=== PATIENT | female | born 1950 | race Two or more races ===

== ENCOUNTER 2020-08-19 18:10 | Emergency (ER) | payer OTHER ==
[~2020-08-19] VITALS: Ht 162.6 cm; Wt 90.7 kg
[2020-08-19] MEDS ORDERED: TYLENOL #3 PO (18:30)
[2020-08-19] MEDS ORDERED: LISI10TA5 PO (18:30)
[2020-08-19] MEDS ORDERED: GABA-532 PO (18:30)
[2020-08-19] MEDS ORDERED: GLIM2TAB31 PO (18:30)
[2020-08-19] MEDS ORDERED: METF-440 PO (18:30)
[2020-08-19] MEDS ORDERED: ASPI81TA31 PO (18:30)
[2020-08-19] MEDS ORDERED: ATOR20TA PO (18:30)
[2020-08-19] MEDS ORDERED: MORPHINE SULFATE 2 MG/1 ML DISP.SYRIN IM ONE (19:15)
[2020-08-19] MEDS ORDERED: KETOROLAC TROMETHAMINE 30 MG INJ IM ONE (19:15)
[2020-08-19] MEDS ORDERED: KETOROLAC TROMETHAMINE 30 MG INJ ONE (19:18)
[2020-08-19] MEDS ORDERED: MORPHINE SULFATE 2 MG/1 ML DISP.SYRIN ONE (19:19)
--- NOTE | 2020-08-19 19:54 | NUR ---
Report given to Reji GUILLERMO. Pt is NAD VSS RA. with R ac G20 intact saline lock. Pending lab results Pending CT
[2020-08-19 19:59] LABS: BASOPHILS % (AUTO) 0.5 % (0.0-2.0); EOSINOPHILS # (AUTO) 0.1 K/uL (0.0-0.7); EOSINOPHILS % (AUTO) 1.5 % (0.0-7.0); HEMATOCRIT 38.1 % (31.2-41.9); HEMOGLOBIN 12.6 g/dL (10.9-14.3); LYMPHOCYTES # (AUTO) 1.8 K/uL (20.0-40.0); LYMPHOCYTES % (AUTO) 42.1 % (20.5-51.5); MEAN CORPUSCULAR HGB CONC 33 g/dL (32.3-35.6); MEAN CORPUSCULAR VOLUME 87.6 fL (75.5-95.3); MONOCYTES # (AUTO) 0.3 K/uL (2.0-10.0); MONOCYTES % (AUTO) 7.6 % (0.0-11.0); NEUTROPHILS % (AUTO) 48.3 % (38.5-71.5); PLATELET COUNT (AUTO) 215 K/uL (179-408); RED BLOOD CELL COUNT(AUTO) 4.35 MIL/uL (3.63-4.92); WHITE BLOOD COUNT (AUTO) 4.2 K/uL (3.8-11.8)
--- NOTE | 2020-08-19 20:05 | NUR ---
RECEIVED SBAR REPORT FROM RADHA GUILLERMO. PT HAD ALL MEDS ADMINISTERED, XRAYS PERFORMED, CT SCAN PENDING.
[2020-08-19 20:20] LABS: CREATININE 0.7 mg/dL (0.6-1.3); POTASSIUM 3.9 mmol/L (3.5-5.1)
[2020-08-19 20:32] LABS: BILIRUBIN,TOTAL 0.7 mg/dL (0.2-1.0); TOTAL PROTEIN, SERUM 7.4 g/dL (6.4-8.2)
--- NOTE | 2020-08-19 22:48 | NUR ---
MSE COMPLETED, PT D/C'D HOME, ACI GIVEN TO DAUGHTER. PT AMBULATED W.O DIFF/TOOK ALL BELONGINGS. IV D/C'D INTACT., COPY OD TESTS RESULTS AND XRAY-CT RESULTS GIVEN.
[2020-08-19 22:52] VITALS: BP 148/84
== END 2020-08-19 22:53 | disposition home or self-care (01) ==
LOC: ER 18:16
DX: R51.9 Headache, unspecified (principal); S33.5XXA Sprain of ligaments of lumbar spine, initial encounter; S23.3XXA Sprain of ligaments of thoracic spine, initial encounter; W01.0XXA Fall on same level from slipping, tripping and stumbling without subsequent striking against object, initial encounter; Y93.01 Activity, walking, marching and hiking; Y92.019 Unspecified place in single-family (private) house as the place of occurrence of the external cause; E11.9 Type 2 diabetes mellitus without complications
CPT/HCPCS: 36415; 70450; 71101; 72072; 72100; 85025; 93005; A4663; J1885; J2270; J7042